=== PATIENT | female | born 1945 | race Caucasian/White ===

== ENCOUNTER → 2017-01-26 | Outpatient (CLI) | payer MEDICARE ==
[~2017-01-26] MED LIST: IBUPROFEN600 MG PO; NORCO 5/325 TAB1 TAB PO
--- NOTE | ~2017-01-26 | CT2 ---
[facility] A Service of [facility] RADIOLOGY TEXT RESULTS PATIENT: AMBER PATEL LOCATION: [facility] : 43 UNIT #: [id number] AGE: [address]: Ralph Lau MD SEX: F ORDER DR: [id number] [facility] [address] [place], [place] [address] [id number] O MR#: [id number] Acc #: [id number] NAME: AMBER PATEL : 1945 SEX: F STUDY DATE/TIME: 01/26/2017 10:28 UNIT: [facility] ROOM: STUDY DESCRIPTION: CT Abd and Pelv W Cont Attending Physician: Bernie Preciado Referring Physician: Bernie Preciado Ordering Physician: Bernie Preciado Primary Care Physician: Bernie Preciado MEDICAL IMAGING REPORT This report is preliminary unless electronic signature is present EXAM CT abdomen and pelvis with contrast INDICATIONS Right lower quadrant abdominal pain for the past 20 years, recently worse. Epigastric abdominal pain for the past year and diarrhea for the past 2-3 days. TECHNIQUE Contrast-enhanced CT of the abdomen and pelvis 100 mL of Isovue-370. This CT exam was performed with one or more of the following radiation dose reduction techniques: Automatic exposure control, adjustment of mA and/or kV according to patient size, and iterative reconstruction. COMPARISON 11/13/2007 FINDINGS Abdomen with contrast: Included lung bases are clear. The liver, spleen, kidneys, adrenal glands, pancreas unremarkable. There is a small stone in the gallbladder. No evidence for inflammation. The bowel loops are nondilated. Appendix is nondilated. Pelvis with contrast: Previous hysterectomy. No pelvic mass or fluid. No aggressive appearing bone lesion. IMPRESSION 1. No acute findings in the abdomen or pelvis. 2. Uncomplicated cholelithiasis. Dictated by... [facility] A Service of [facility] RADIOLOGY TEXT RESULTS PATIENT: AMBER PATEL LOCATION: [facility] : 44 UNIT #: [id number] AGE: [address]: Ralph Lau MD SEX: F ORDER DR: Kwame Floyd M.D. THIS IS AN ELECTRONICALLY VERIFIED REPORT Kwame Floyd M.D. at 01/27/2017 7:11 AM EED/madonna TD: 01/26/2017 14:13 JOB #: [id number] MEDICAL IMAGING REPORT Page 1 of 1 COPY
[2017-01-26 10:20] LABS: POC - CREATININE 0.84 mg/dL (0.44-1.03); POC - GFR >60.0 mL/min (>60)
== END | disposition home or self-care (01) ==
LOC: CCAT 08:49
PROVIDERS: Internal Medicine
DX: K21.0 Gastro-esophageal reflux disease with esophagitis (principal); R10.31 Right lower quadrant pain; R10.13 Epigastric pain; R19.4 Change in bowel habit; K80.20 Calculus of gallbladder without cholecystitis without obstruction
CPT/HCPCS: 74177; 82565; Q9967

== ENCOUNTER → 2017-02-19 | Outpatient (CLI) | payer MEDICARE ==
--- NOTE | ~2017-02-19 | CR151 ---
[facility] Service of [facility] RADIOLOGY TEXT RESULTS PATIENT: AMBER PATEL LOCATION: [facility] : 43 UNIT #: [id number] AGE: [address]: Ralph Lau MD SEX: F ORDER DR: [id number] [facility] [address] [place], [place] [address] [id number] O MR#: [id number] Acc #: [id number] NAME: AMBER PATEL : 1945 SEX: F STUDY DATE/TIME: 02/19/2017 12:52 UNIT: [facility] ROOM: STUDY DESCRIPTION: CR Hip Min 2 Views Rt Attending Physician: Bernie Preciado Referring Physician: Bernie Preciado Ordering Physician: Bernie Preciado Primary Care Physician: Bernie Preciado MEDICAL IMAGING REPORT This report is preliminary unless electronic signature is present EXAM Right hip 2 views, 02/19/2017 HISTORY Right hip pain and stiffness for 1 year. No known injury. FINDINGS AP and oblique examination of the hip shows adequate mineralization of the bones and a normal anatomic relationship of the femoral head with the acetabulum. There are no hypertrophic changes, fractures, dislocation, or joint capsular distension. No radiopaque foreign body is present about the soft tissues of the hip. IMPRESSION Normal hip. Dictated by... Win Jj M.D. THIS IS AN ELECTRONICALLY VERIFIED REPORT Win Jj M.D. at 02/20/2017 3:39 PM DONNA/eloy TD: 02/20/2017 00:45 JOB #: [id number] MEDICAL IMAGING REPORT Page 1 of 1 COPY
== END | disposition home or self-care (01) ==
LOC: CRAD 12:39
DX: M25.851 Other specified joint disorders, right hip (principal); M25.651 Stiffness of right hip, not elsewhere classified; M25.551 Pain in right hip
CPT/HCPCS: 73502

== ENCOUNTER → 2017-05-05 | Outpatient (CLI) | payer MEDICARE ==
--- NOTE | ~2017-05-05 | XA30 ---
[facility] A Service of [facility] RADIOLOGY TEXT RESULTS PATIENT: AMBER PATEL LOCATION: [facility] : 43 UNIT #: [id number] AGE: [address]: Ronald Soriano MD SEX: F ORDER DR: [id number] [place] [id number] [facility]. [address] [id number] O MR#: [id number] Acc #: [id number] NAME: AMBER PATEL : 1945 SEX: F STUDY DATE/TIME: 05/05/2017 13:19 UNIT: [facility] ROOM: STUDY DESCRIPTION: XA Arthrocentesis Major Joint Attending Physician: Ronald Soriano M.D. Referring Physician: Ronald Soriano M.D. Ordering Physician: Ronald Soriano M.D. Primary Care Physician: Bernie Preciado MEDICAL IMAGING REPORT This report is preliminary unless electronic signature is present EXAM Fluoroscopically-guided right hip injection INDICATION Right hip pain and stiffness. This has been present for over a year. PROCEDURE There risks, benefits, and alternatives to the procedure were explained to the patient and signed, informed consent was obtained. She was placed supine on the angiographic table and was prepped and draped in the usual sterile fashion. Time-out was performed as per protocol. Skin and subcutaneous tissues were anesthetized with buffered lidocaine and a 22-gauge spinal needle was advanced into the joint space. Contrast was injected which confirmed location within the joint space and I instilled a combination of Lidocaine, bupivacaine and Depo-Medrol. Needle was then removed and manual pressure was applied until hemostasis was obtained. Patient tolerated the procedure well and there were no immediate complications. Total fluoroscopy time was 0.4 minutes. A single fluoroscopic image was obtained. IMPRESSION Technically successful fluoroscopically-guided right hip injection. As noted above, fluoroscopy used during the procedure and permanent images were saved. Dictated by... Lore Colon M.D. THIS IS AN ELECTRONICALLY VERIFIED REPORT Lore Colon M.D. at 05/06/2017 4:59 PM AFF/jw TD: 05/06/2017 13:25 [facility] A Service of [facility] RADIOLOGY TEXT RESULTS PATIENT: AMBER PATEL LOCATION: [facility] #: [id number] : 43 UNIT #: [id number] AGE: [address]: Ronald Soriano MD SEX: F ORDER DR: DELON #: [id number] MEDICAL IMAGING REPORT Page 1 of 1 COPY
== END | disposition home or self-care (01) ==
LOC: CIVR 13:02
DX: M25.551 Pain in right hip (principal)
CPT/HCPCS: 77002; J1030; Q9966

== ENCOUNTER → 2017-07-08 | Outpatient (CLI) | payer MEDICARE ==
--- NOTE | ~2017-07-08 | MY29 ---
[facility] A Service of [facility] RADIOLOGY TEXT RESULTS PATIENT: AMBER PATEL LOCATION: [facility] : 43 UNIT #: [id number] AGE: [address]: Ralph Lau MD SEX: F ORDER DR: [id number] [facility] [address]. [place], [place] [address] [id number] O MR#: [id number] Acc #: [id number] NAME: AMBER PATEL : 1945 SEX: F STUDY DATE/TIME: 07/08/2017 13:00 UNIT: [facility] ROOM: STUDY DESCRIPTION: MY BISHOP SCREENING W/ CAD BILAT Attending Physician: Bernie Preciado Referring Physician: Bernie Preciado Ordering Physician: Bernie Preciado Primary Care Physician: Bernie Preciado MEDICAL IMAGING REPORT This report is preliminary unless electronic signature is present EXAM Digital screening mammogram 07/08/2017 HISTORY 71-year-old woman no risk elevation. Annual screen. COMPARISON Mammograms date to 05/04/2008 with most recent 06/12/2016 FINDINGS Digital imaging of each breast was completed utilizing screening protocol. Review includes FDA-approved CAD device. Breast parenchyma is partially fatty replaced. Residual parenchymal opacities are stable, slightly dominant in the left breast. There is no interval occurring breast mass. Suggestion of lipoma present lower inner left breast location. I see no microcalcifications and no suspicious architectural deformity. IMPRESSION Negative stable mammogram. Annual screening recommended. Patients over the age of 40 are entered into a reminder system with target due date for the next mammogram. A result letter will also be sent to the patient. BIRADS: 1, negative. Dictated by... Shahab Mcguire M.D. THIS IS AN ELECTRONICALLY VERIFIED REPORT Shahab Mcguire M.D. at 07/08/2017 3:55 PM JBB/rnr [facility] A Service of [facility] RADIOLOGY TEXT RESULTS PATIENT: AMBER PATEL LOCATION: [facility] #: [id number] : 43 UNIT #: [id number] AGE: [address]: Ralph Lau MD SEX: F ORDER DR: TD: 07/08/2017 15:04 JOB #: [id number] MEDICAL IMAGING REPORT Page 1 of 1 COPY
== END | disposition home or self-care (01) ==
LOC: CWCC 12:50
DX: Z12.31 Encounter for screening mammogram for malignant neoplasm of breast (principal)
CPT/HCPCS: G0202